=== PATIENT | female | born 1980 | race American Indian/Alaskan Native ===

== ENCOUNTER 2019-05-10 20:00 | Emergency (ER) | payer MEDICAID, OTHER ==
--- NOTE | 2019-05-10 20:33 | Emergency Department Report ---
Blank Doc - Documentation Documentation: This is a 38-year-old female that presents with right flank pain and hematuria. HX of kidney stones. This initial assessment/diagnostic orders/clinical plan/treatment(s) is/are subject to change based on patient's health status, clinical progression and re- assessment by fellow clinical providers in the ED. Further treatment and workup at subsequent clinical providers discretion. Patient/guardians urged not to elope from the ED as their condition may be serious if not clinically assessed and managed. Initial orders include: 1- Patient sent to [facility] for further evaluation and treatment 2- UA
[2019-05-10 21:54] LABS: Amorphous Crystals,Urine Few; Bilirubin,Urine NEG (Negative); Blood,Urine NEG (Negative); Color,Urine Yellow (Yellow); Mucus,Urine FEW /HPF; Protein,Urine <15 mg/dL mg/dL (Negative); Urobilinogen,Urine < 2.0 mg/dL (<2.0)
[2019-05-10 21:57] LABS: HCG Qualitative,Urine Negative (Negative)
[2019-05-10] MEDS ORDERED: ZOFRAN IV ONE (23:08)
[2019-05-10] MEDS ORDERED: NACL 0.9% 1000 ML 1,000 ML IV ONE (23:08)
[2019-05-10] MEDS ORDERED: TORADOL IV ONE (23:08)
[2019-05-10 23:47] VITALS: BP 124/73
--- NOTE | 2019-05-11 00:08 | Emergency Department Report ---
ED Abdominal Pain HPI - General Chief Complaint: Abdominal Pain Stated Complaint: RT SIDE PAIN/BLOOD IN URINE Time Seen by Provider: 05/10/19 20:32 Source: patient Mode of arrival: Ambulatory Limitations: No Limitations - History of Present Illness Initial Comments: This is a 38-year-old female that presents with right flank pain and hematuria. HX of kidney stones. there is no fever this nausea no vomiting, last hematuria was yesterday last renal stone 2 months ago 5mm right nonobstructing. MD Complaint: abdominal pain Onset/Timin -: days(s) Radiation: R flank Migration to: suprapubic Severity: moderate Severity scale (0 -10): 3 Quality: aching, sharp Consistency: constant Improves With: nothing Worsens With: other (voiding) Associated Symptoms: nausea, dysuria. denies: vomiting, diarrhea, fever, chills, constipation, hematemesis, hematochezia, melena, hematuria, anorexia, syncope - Related Data LMP Date: 04/26/19 LMP (females 10-50): other (s/p part hysto) Previous Rx's Medication Instructions Recorded Last Taken Type oxyCODONE /ACETAMINOPHEN [Percocet 1 tab PO Q6HR PRN #20 tablet 12/27/13 Unknown Rx 5/325 mg] Ciprofloxacin HCl [Ciprofloxacin 500 mg PO BID 10 Days #20 tab 05/11/19 Unknown Rx TAB] Tamsulosin [Flomax] 0.4 mg PO QDAY #14 cap 05/11/19 Unknown Rx traMADol [Ultram] 50 mg PO Q6HR PRN #12 tablet 05/11/19 Unknown Rx Allergies Allergy/AdvReac Type Severity Reaction Status Date / Time No Known Allergies Allergy Unverified 12/27/13 15:29 ED Review of Systems ROS: Stated complaint: RT SIDE PAIN/BLOOD IN URINE Other details as noted in HPI Constitutional: denies: chills, fever Eyes: denies: eye pain, eye discharge, vision change ENT: denies: ear pain, throat pain Respiratory: denies: cough, shortness of breath, wheezing Cardiovascular: denies: chest pain, palpitations Endocrine: no symptoms reported Gastrointestinal: abdominal pain, nausea. denies: vomiting, diarrhea, constipation, hematemesis, melena, hematochezia Genitourinary: urgency, dysuria, frequency, hematuria. denies: discharge, dyspareunia Musculoskeletal: back pain (flank pain right ). denies: joint swelling, arthralgia, myalgia Skin: denies: rash, lesions Neurological: denies: headache, weakness, paresthesias Psychiatric: denies: anxiety, depression Hematological/Lymphatic: denies: easy bleeding, easy bruising ED Past Medical Hx - Past Medical History Previous Medical History?: Yes Hx Kidney Stones: Yes - Surgical History Past Surgical History?: Yes Additional Surgical History: shoulder injury/surgery 02/08 - Social History Smoking Status: Never Smoker Substance Use Type: None - Medications Home Medications: Home Medications Medication Instructions Recorded Confirmed Last Taken Type oxyCODONE /ACETAMINOPHEN [Percocet 1 tab PO Q6HR PRN #20 tablet 12/27/13 Unknown Rx 5/325 mg] Ciprofloxacin HCl [Ciprofloxacin 500 mg PO BID 10 Days #20 tab 05/11/19 Unknown Rx TAB] Tamsulosin [Flomax] 0.4 mg PO QDAY #14 cap 05/11/19 Unknown Rx traMADol [Ultram] 50 mg PO Q6HR PRN #12 tablet 05/11/19 Unknown Rx ED Physical Exam - General Limitations: No Limitations General appearance: alert, in no apparent distress - Head Head exam: Present: atraumatic, normocephalic - Eye Eye exam: Present: normal appearance, PERRL, EOMI Pupils: Present: normal accommodation - ENT ENT exam: Present: mucous membranes moist. Absent: TM's normal bilaterally, normal external ear exam - Neck Neck exam: Present: normal inspection, full ROM. Absent: tenderness, lymphadenopathy, thyromegaly - Respiratory Respiratory exam: Present: normal lung sounds bilaterally. Absent: respiratory distress, wheezes, stridor, chest wall tenderness - Cardiovascular Cardiovascular Exam: Present: regular rate, normal rhythm, normal heart sounds. Absent: systolic murmur, diastolic murmur, rubs, gallop - GI/Abdominal GI/Abdominal exam: Present: soft, normal bowel sounds. Absent: distended, tenderness, guarding, rebound, rigid, bruit, hernia - Rectal Rectal exam: Present: deferred - Extremities Exam Extremities exam: Present: normal inspection, full ROM, normal capillary refill. Absent: tenderness, pedal edema, joint swelling, calf tenderness - Back Exam Back exam: Present: normal inspection, full ROM, CVA tenderness (R). Absent: tenderness, CVA tenderness (L), muscle spasm, paraspinal tenderness, vertebral tenderness, rash noted - Neurological Exam Neurological exam: Present: alert, oriented X3, CN II-XII intact, normal gait, reflexes normal. Absent: motor sensory deficit - Psychiatric Psychiatric exam: Present: normal affect, normal mood - Skin Skin exam: Present: warm, dry, intact, normal color. Absent: rash ED Course Vital Signs 05/10/19 05/10/19 20:33 23:46 Temperature 98 F 98.6 F Pulse Rate 66 90 Respiratory 18 16 Rate Blood Pressure 105/59 Blood Pressure 124/73 [Left] O2 Sat by Pulse 100 98 Oximetry ED Medical Decision Making - Radiology Data Radiology results: report reviewed, image reviewed Ordering Physician: CHARLES EARL NP Date of Service: 05/10/19 Procedure(s): CT abdomen pelvis wo con Accession Number(s): [id number] cc: CHARLES EARL NP PROCEDURE: CT ABDOMEN PELVIS WO CON TECHNIQUE: Computerized axial tomography of the abdomen and pelvis was performed without intravenous contrast. This study is performed without intravascular contrast material and its sensitivity for abdominal and pelvic pathology, including neoplasms, inflammation, abscess, free fluid, thrombosis, arterial dissection and infarction, is reduced compared with a contrast enhanced study. HISTORY: flank pain hx renal stones COMPARISONS: None . FINDINGS: Lower Lung mayorga: No focal abnormalities seen. Upper Abdomen: Unenhanced images of the liver are unremarkable. Gallbladder is partially contracted and difficult to evaluate. No gross abnormalities seen. The adrenal glands, the pancreas and spleen show no abnormalities. Kidneys, Ureters and Urinary bladder: There are numerous nonobstructing calculi throughout the upper middle and lower third of the right kidney measuring up to 5 mm in size. There is an extrarenal pelvis of the right kidney, normal variant. The extrarenal pelvis and calyces are mildly dilated. There appears to be mild right-sided hydronephrosis. The right ureter is minimally dilated. There is a calculus visualized at the right ureterovesical junction measuring 5.5 x 6.0 mm. No other ureteral calculi are seen in the right or left. There are other calcifications in the lower pelvis which appear to represent phleboliths. Left kidney is unremarkable. No masses, or hydronephrosis visualized. No definite ureteral calculi are seen on the left. Urinary bladder is unremarkable. Retroperitoneum: The abdominal aorta appears normal. Nonspecific subcentimeter lymph nodes are seen in the retroperitoneum. No pathologically enlarged lymph nodes are identified. Bowel: Bowel loops are unremarkable. No evidence of bowel obstruction ascites or free intraperitoneal gas. Normal-appearing appendix is seen in the right lower quadrant. Reproductive organs: Uterus and adnexa are unremarkable. Other: No acute bone abnormalities are seen. IMPRESSION: Numerous nonobstructing renal calculi visualized right kidney. There appears to be mild right-sided hydronephrosis secondary to a 5.5 x 6.0 mm calculus in the distal right ureter at the ureterovesical junction. No other ureteral calculi are seen in the right or left. No other abnormalities are seen. This document is electronically signed by Fred Curran MD., May 11 2019 12:45:42 AM ET Transcribed By: ARIAS Dictated By: FRED CURRAN MD Electronically Authenticated By: FRED CURRAN MD Signed Date/Time: 05/11/19 0047 DD/ 51 TD/TT: 05/10/19 712 - Medical Decision Making CT abdomen and pelvis right Renal stones 5.6x6.0 cm nonobstructing, mile hydreonephrosis, multiple nonobstructing same renal stones this is a chronic problem for this pt, pain is improved, pt is voiding without difficulty at this time , plan dc to home with rx for toradol, cipro, and flomax, pt will follow up with Urology in 2-3 days , pt verbalized agreement and understanding of discharge plan. Critical care attestation.: If time is entered above; I have spent that time in minutes in the direct care of this critically ill patient, excluding procedure time. ED Disposition Clinical Impression: Kidney stone Disposition: DC-01 TO HOME OR SELFCARE Is pt being admited?: No Does the pt Need Aspirin: No Condition: Stable Instructions: Abdominal Pain (ED), Kidney Stones (ED) Prescriptions: Ciprofloxacin HCl [Ciprofloxacin TAB] 500 mg PO BID 10 Days #20 tab Tamsulosin [Flomax] 0.4 mg PO QDAY #14 cap traMADol [Ultram] 50 mg PO Q6HR PRN #12 tablet PRN Reason: Pain Referrals: IVANIA LEIVA MD [Staff Physician] - 3-5 Days Forms: Work/School Release Form(ED) Time of Disposition: 01:56
--- NOTE | 2019-05-11 00:47 | Cat Scan Report ---
PROCEDURE: CT ABDOMEN PELVIS WO CON TECHNIQUE: Computerized axial tomography of the abdomen and pelvis was performed without intravenous contrast. This study is performed without intravascular contrast material and its sensitivity for ab dominal and pelvic pathology, including neoplasms, inflammation, abscess, free fluid, thrombosis, art erial dissection and infarction, is reduced compared with a contrast enhanced study. HISTORY: flank pain hx renal stones COMPARISONS: None . FINDINGS: Lower Lung mayorga: No focal abnormalities seen. Upper Abdomen: Unenhanced images of the liver are unremarkable. Gallbladder is partially contracted and difficult to evaluate. No gross abnormalities seen. The adrenal glands, the pancreas and spleen s how no abnormalities. Kidneys, Ureters and Urinary bladder: There are numerous nonobstructing calculi throughout the upper middle and lower third of the right kidney measuring up to 5 mm in size. There is an extrarenal pelv is of the right kidney, normal variant. The extrarenal pelvis and calyces are mildly dilated. There a ppears to be mild right-sided hydronephrosis. The right ureter is minimally dilated. There is a calcu rosanne visualized at the right ureterovesical junction measuring 5.5 x 6.0 mm. No other ureteral calculi are seen in the right or left. There are other calcifications in the lower pelvis which appear to re present phleboliths. Left kidney is unremarkable. No masses, or hydronephrosis visualized. No definit e ureteral calculi are seen on the left. Urinary bladder is unremarkable. Retroperitoneum: The abdominal aorta appears normal. Nonspecific subcentimeter lymph nodes are seen in the retroperitoneum. No pathologically enlarged ly mph nodes are identified. Bowel: Bowel loops are unremarkable. No evidence of bowel obstruction ascites or free intraperitonea l gas. Normal-appearing appendix is seen in the right lower quadrant. Reproductive organs: Uterus and adnexa are unremarkable. Other: No acute bone abnormalities are seen. IMPRESSION: Numerous nonobstructing renal calculi visualized right kidney. There appears to be mild right-sided hydronephrosis secondary to a 5.5 x 6.0 mm calculus in the dista l right ureter at the ureterovesical junction. No other ureteral calculi are seen in the right or lef t. No other abnormalities are seen. This document is electronically signed by Fred Parry MD., May 11 2019 12:45:42 AM ET
[2019-05-11] MEDS ORDERED: MORPHINE IV ONE (01:45)
[2019-05-11] MEDS ORDERED: ZOFRAN IV ONE (01:45)
[2019-05-11] MEDS ORDERED: ROCEPHIN/NS 1 GM/50 ML 1 GM/50 ML BAG IV ONE (01:46)
== END 2019-05-11 02:50 | disposition home or self-care (01) ==
LOC: ED 20:00
DX: N20.0 Calculus of kidney (principal)
CPT/HCPCS: 74176; 81001; 81025; 87086; 96365; 96375; 96376; 99284; J0696; J1885; J2270; J2405; J7030; 87076; 87186

== ENCOUNTER 2019-05-27 13:55 | Emergency (ER) | payer SELFPAY ==
[2019-05-27 14:17] VITALS: BP 106/61
[2019-05-27] MEDS ORDERED: ZOFRAN IV ONE (14:49)
[2019-05-27] MEDS ORDERED: TORADOL IV ONE (14:49)
[2019-05-27] MEDS ORDERED: NACL 0.9% 1000 ML 1,000 ML IV ONE (14:49)
[2019-05-27] MEDS ORDERED: MORPHINE IV ONE (14:49)
[2019-05-27] MEDS ORDERED: BENADRYL IV ONE (15:06)
[2019-05-27] MEDS ORDERED: BENADRYL ONE (15:10)
[2019-05-27 15:27] LABS: Bilirubin,Urine NEG (Negative); Blood,Urine NEG (Negative); Color,Urine Yellow (Yellow); Mucus,Urine FEW /HPF; Protein,Urine <15 mg/dL mg/dL (Negative); Urobilinogen,Urine < 2.0 mg/dL (<2.0)
[2019-05-27 15:27] LABS: Basophils # (Auto) 0.1 K/mm3 (0.0-0.1); Eosinophils # (Auto) 0.5 K/mm3 (0.0-0.4); Eosinophils % (Auto) 6.4 % (0.0-4.3); Hematocrit 34.1 % (30.3-42.9); Lymphocytes % (Auto) 28.2 % (13.4-35.0); Mean Corpuscular HGB Conc 32 % (30-34); Mean Corpuscular Volume 84 fl (79-97); Monocytes # (Auto) 0.4 K/mm3 (0.0-0.8); Monocytes % (Auto) 6.1 % (0.0-7.3); Platelet Count 226 K/mm3 (140-440); Red Blood Count 4.07 M/mm3 (3.65-5.03); Red Cell Distribution Width 14.2 % (13.2-15.2)
[2019-05-27 15:56] LABS: Alanine Aminotransferase 13 units/L (7-56); Albumin 3.7 g/dL (3.9-5); BUN/Creatinine Ratio 9; Blood Urea Nitrogen 10 mg/dL (7-17); Calcium 8.6 mg/dL (8.4-10.2); Hemolysis Index 7
--- NOTE | 2019-05-27 16:48 | Emergency Department Report ---
ED Abdominal Pain HPI - General Chief Complaint: Abdominal Pain Stated Complaint: KIDNEY STONE Time Seen by Provider: 05/27/19 14:48 Source: patient Mode of arrival: Ambulatory Limitations: No Limitations - History of Present Illness Initial Comments: Patient is a 38-year-old female who has had off and on right flank pain for several months. Patient was here 2 weeks ago and was found that she had a right-sided UVJ obstructive uropathy with a stone measuring approximately 6 mm at its widest width. The patient has seen Dr. Yancey is scheduled for a possible stenting on 06/06/2019. Patient states that 4 days ago pain worsens. She's had some nausea vomiting. Patient states that Percocet only worse if she takes 2 pills instead of one. Patient denies any dysuria hematuria fevers chills at this time. Severity scale (0 -10): 9 - Related Data Previous Rx's Medication Instructions Recorded Last Taken Type oxyCODONE /ACETAMINOPHEN [Percocet 1 tab PO Q6HR PRN #20 tablet 12/27/13 Unknown Rx 5/325 mg] Ciprofloxacin HCl [Ciprofloxacin 500 mg PO BID 10 Days #20 tab 05/11/19 Unknown Rx TAB] Tamsulosin [Flomax] 0.4 mg PO QDAY #14 cap 05/11/19 Unknown Rx traMADol [Ultram] 50 mg PO Q6HR PRN #12 tablet 05/11/19 Unknown Rx Ketorolac [Toradol] 10 mg PO Q6H PRN #12 tablet 05/27/19 Unknown Rx Nitrofurantoin Starke/M-Cryst 100 mg PO Q12HR #14 capsule 05/27/19 Unknown Rx [Macrobid CAP] Ondansetron [Zofran Odt] 4 mg PO Q8HR #10 tab.rapdis 05/27/19 Unknown Rx Tamsulosin [Flomax] 0.4 mg PO QDAY #10 cap 05/27/19 Unknown Rx traMADol [Ultram] 50 mg PO Q6HR PRN #12 tablet 05/27/19 Unknown Rx Allergies Allergy/AdvReac Type Severity Reaction Status Date / Time No Known Allergies Allergy Verified 05/27/19 13:57 ED Review of Systems ROS: Stated complaint: KIDNEY STONE Other details as noted in HPI Comment: All other systems reviewed and negative ED Past Medical Hx - Past Medical History Hx Kidney Stones: Yes - Surgical History Additional Surgical History: shoulder injury/surgery 02/08 - Social History Smoking Status: Never Smoker Substance Use Type: Alcohol - Medications Home Medications: Home Medications Medication Instructions Recorded Confirmed Last Taken Type oxyCODONE /ACETAMINOPHEN [Percocet 1 tab PO Q6HR PRN #20 tablet 12/27/13 Unknown Rx 5/325 mg] Ciprofloxacin HCl [Ciprofloxacin 500 mg PO BID 10 Days #20 tab 05/11/19 Unknown Rx TAB] Tamsulosin [Flomax] 0.4 mg PO QDAY #14 cap 05/11/19 Unknown Rx traMADol [Ultram] 50 mg PO Q6HR PRN #12 tablet 05/11/19 Unknown Rx Ketorolac [Toradol] 10 mg PO Q6H PRN #12 tablet 05/27/19 Unknown Rx Nitrofurantoin Starke/M-Cryst 100 mg PO Q12HR #14 capsule 05/27/19 Unknown Rx [Macrobid CAP] Ondansetron [Zofran Odt] 4 mg PO Q8HR #10 tab.rapdis 05/27/19 Unknown Rx Tamsulosin [Flomax] 0.4 mg PO QDAY #10 cap 05/27/19 Unknown Rx traMADol [Ultram] 50 mg PO Q6HR PRN #12 tablet 05/27/19 Unknown Rx ED Physical Exam - General Limitations: No Limitations General appearance: alert, in distress - Head Head exam: Present: atraumatic, normocephalic - Eye Eye exam: Present: normal appearance, PERRL, EOMI - ENT ENT exam: Present: mucous membranes moist - Neck Neck exam: Present: normal inspection - Respiratory Respiratory exam: Present: normal lung sounds bilaterally. Absent: respiratory distress, wheezes, rales, rhonchi - Cardiovascular Cardiovascular Exam: Present: regular rate, normal rhythm. Absent: systolic murmur, diastolic murmur, rubs, gallop - GI/Abdominal GI/Abdominal exam: Present: soft, normal bowel sounds. Absent: distended, tenderness, guarding, rebound, rigid - Extremities Exam Extremities exam: Present: normal inspection - Back Exam Back exam: Present: normal inspection, CVA tenderness (R) - Neurological Exam Neurological exam: Present: alert, oriented X3 - Psychiatric Psychiatric exam: Present: normal affect, normal mood - Skin Skin exam: Present: warm, dry, intact, normal color. Absent: rash ED Course Vital Signs 05/27/19 14:15 Temperature 97.9 F Pulse Rate 70 Respiratory 18 Rate Blood Pressure 106/61 O2 Sat by Pulse 99 Oximetry ED Medical Decision Making - Lab Data Result diagrams: 05/27/19 15:08 05/27/19 15:08 Lab Results 05/27/19 05/27/19 05/27/19 Range/Units 15:00 15:08 15:08 WBC 7.2 (4.5-11.0) K/mm3 RBC 4.07 (3.65-5.03) M/mm3 Hgb 11.0 (10.1-14.3) gm/dl Hct 34.1 (30.3-42.9) % MCV 84 (79-97) fl MCH 27 L (28-32) pg MCHC 32 (30-34) % RDW 14.2 (13.2-15.2) % Plt Count 226 (140-440) K/mm3 Lymph % (Auto) 28.2 (13.4-35.0) % Starke % (Auto) 6.1 (0.0-7.3) % Eos % (Auto) 6.4 H (0.0-4.3) % Baso % (Auto) 1.0 (0.0-1.8) % Lymph # 2.0 (1.2-5.4) K/mm3 Starke # 0.4 (0.0-0.8) K/mm3 Eos # 0.5 H (0.0-0.4) K/mm3 Baso # 0.1 (0.0-0.1) K/mm3 Seg Neutrophils % 58.3 (40.0-70.0) % Seg Neutrophils # 4.2 (1.8-7.7) K/mm3 Sodium 139 (137-145) mmol/L Potassium 4.2 (3.6-5.0) mmol/L Chloride 105.3 (98-107) mmol/L Carbon Dioxide 24 (22-30) mmol/L Anion Gap 14 mmol/L BUN 10 (7-17) mg/dL Creatinine 1.1 (0.7-1.2) mg/dL Estimated GFR > 60 ml/min BUN/Creatinine Ratio 9 % Glucose 81 (65-100) mg/dL Calcium 8.6 (8.4-10.2) mg/dL Total Bilirubin < 0.20 (0.1-1.2) mg/dL AST 18 (5-40) units/L ALT 13 (7-56) units/L Alkaline Phosphatase 41 (35-129) units/L Total Protein 6.8 (6.3-8.2) g/dL Albumin 3.7 L (3.9-5) g/dL Albumin/Globulin Ratio 1.2 % Urine Color Yellow (Yellow) Urine Turbidity Clear (Clear) Urine pH 6.0 (5.0-7.0) Ur Specific Atkins 1.020 (1.003-1.030) Urine Protein <15 mg/dl (Negative) mg/dL Urine Glucose (UA) Neg (Negative) mg/dL Urine Ketones Neg (Negative) mg/dL Urine Blood Neg (Negative) Urine Nitrite Neg (Negative) Urine Bilirubin Neg (Negative) Urine Urobilinogen < 2.0 (<2.0) mg/dL Ur Leukocyte Esterase Tr (Negative) Urine WBC (Auto) 7.0 H (0.0-6.0) /HPF Urine RBC (Auto) 2.0 (0.0-6.0) /HPF U Epithel Cells (Auto) 4.0 (0-13.0) /HPF Urine Mucus Few /HPF - Radiology Data Radiology results: image reviewed (CT shows that the patient has a right-sided UVJ stone versus possible 5 mm at this time with hydronephrosis and hydroureter) - Medical Decision Making Patient's previous CT showed a 6 mm UVJ stone. It is difficult to ascertain whether this same stones last Tylenol or another. Patient has multiple kidney stones in the right kidney. Since patient's pain did improve in the interim between her last visit today was likely is new stone. Patient renal function is within normal limits. She does have a slight UTI. Patient is to continue taking 2 Percocet every 6 hours as needed. Ultrasound be given for breakthrough pain. Patient also started on Toradol and Flomax. Patient to be discharged home with nausea medicine as well. Patient to call her urology office on Wednesday to see if she can get her appointment moved to a closer time. Critical care attestation.: If time is entered above; I have spent that time in minutes in the direct care of this critically ill patient, excluding procedure time. ED Disposition Clinical Impression: Renal colic on right side Hydronephrosis Qualifiers: Hydronephrosis type: with ureteral calculous obstruction Qualified Code(s): N13.2 - Hydronephrosis with renal and ureteral calculous obstruction Acute cystitis Qualifiers: Hematuria presence: without hematuria Qualified Code(s): N30.00 - Acute cystitis without hematuria Disposition: TO HOME OR SELFCARE Is pt being admited?: No Does the pt Need Aspirin: No Condition: Stable Instructions: Kidney Stones (ED), Renal Colic (ED), How to Strain Your Urine (ED) Referrals: SHANDA RAMIREZ MD [Staff Physician] - 3-5 Days Time of Disposition: 16:49
--- NOTE | 2019-05-27 16:58 | Cat Scan Report ---
PROCEDURE: CT ABDOMEN PELVIS WO CON TECHNIQUE: Computerized axial tomography of the abdomen and pelvis was performed without intravenous contrast. This study is performed without intravascular contrast material and its sensitivity for ab dominal and pelvic pathology, including neoplasms, inflammation, abscess, free fluid, thrombosis, art erial dissection and infarction, is reduced compared with a contrast enhanced study. CT DOSE LENGTH PRODUCT: 1139.5 mGycm HISTORY: right sided flank pain COMPARISONS: None . FINDINGS: Lower Lung mayorga: No focal abnormalities are seen. Upper Abdomen: The liver, the gallbladder, the adrenal glands, the pancreas and spleen are unremarka ble. Kidneys, Ureters and Urinary bladder: There are numerous calcifications again visualized in the righ t kidney measuring up to 5 mm in size. These haven't changed significantly. An extrarenal pelvis of t he right kidney is present, normal variant. The calyces however appear mildly distended and the right ureter appears to be mildly distended proximally. There is a calcification in the expected location of the right ureterovesical junction seen on image 166 series 2. This calcification was visualized on the prior study as well. This measures approximately 5 mm greatest diameter. Distal right ureter how ever is not significantly distended. Confirmation that this calculus is in the ureterovesical junctio n could be obtained with contrast-enhanced CT scan and delayed imaging. Urinary bladder is unremarkab le. No calculi are seen in the left kidney or left ureter. Retroperitoneum: Abdominal aorta appears normal. Nonspecific subcentimeter lymph nodes are seen in the retroperitoneum. No pathologically enlarged ly mph nodes are identified. Bowel: Bowel loops are unremarkable. Normal-appearing appendix seen right lower quadrant. No evidenc e of bowel obstruction ascites or free intraperitoneal gas. Minimal umbilical hernia containing adipo se tissue is visualized. Reproductive organs: Uterus and adnexa are unremarkable. Other: No acute bone abnormalities are identified. IMPRESSION: There is an extrarenal pelvis of the right kidney and there is mild dilatation of the right collectin g system and proximal right ureter. At the expected location of the right ureterovesical junction the re is a 5 mm calculus present as described. I cannot exclude a partially obstructing calculus. This i s unchanged from the prior study. Confirmation that this calculus is in the distal right ureter may b e made with contrast-enhanced CT scan abdomen and pelvis and delayed imaging. Multiple nonobstructing renal calculi right kidney as described. No other abnormalities are identified. This document is electronically signed by Fred Parry MD., May 27 2019 04:56:38 PM ET
== END 2019-05-27 17:01 | disposition home or self-care (01) ==
LOC: ED 13:55
DX: N20.0 Calculus of kidney (principal); N13.2 Hydronephrosis with renal and ureteral calculous obstruction; N30.00 Acute cystitis without hematuria; Z79.899 Other long term (current) drug therapy
CPT/HCPCS: 36415; 74176; 80053; 81001; 85025; 96361; 96374; 96375; 99284; J1200; J1885; J2270; J2405; J7030